=== PATIENT | male | born 1980 | race Caucasian/White ===

== ENCOUNTER 2021-04-18 11:47 | Emergency (ER) | payer OTHER, SELFPAY ==
--- NOTE | ~2021-04-18 | XR_ITS ---
EXAMINATION: XR CHEST CLINICAL INFORMATION: Malaise. Not feeling well. COMPARISON: None TECHNIQUE: Frontal view of the chest was obtained. FINDINGS: No significant abnormality is noted involving the heart, lungs, mediastinum, bony thorax or soft tissues. XR/XR chest 1V IMPRESSION: Unremarkable examination.
--- NOTE | 2021-04-18 11:53 | ED.NAVMDI ---
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) Associated symptoms: myalgias, loss of appetite and malaise Related Data Allergies Allergy/AdvReac Type Severity Reaction Status Date / Time Penicillins [PCN] Allergy Intermediate ANAPHYLAXIS Unverified 05/09/20 15:56 amoxicillin [AMOXICILLIN] Allergy Unknown ANAPHYLAXIS Unverified 05/09/20 15:56 ibuprofen [IBUPROFEN] Allergy Unknown GI UPSET Unverified 05/09/20 15:56 Review of Systems Review of Systems: Constitutional : No Weight loss, No Fever, No Chills, pos Fatigue, pos Malaise ENT/Mouth : No sore throat, No Rhinorrhea Eyes: No Eye Pain, No Swelling, No Redness Cardiovascular : No Chest Pain, No SOB, No Dyspnea on Exertion, No Orthopnea, No Edema, No Palpitations Respiratory : No Cough, No Sputum, No Wheezing Gastrointestinal : No Nausea, No Vomiting, No Diarrhea, No Constipation, No abdominal Pain, No Hematochezia, No Melena Genitourinary : No Dysuria, No Urinary Frequency, No Hematuria, Musculoskeletal : No joint pain, pos Myalgias, No Joint Swelling Skin : No Skin Lesions, No rash Neuro : No Weakness, No Numbness, No Dizziness, No Headache Psych : No Anxiety/Panic, No Depression Heme/Lymph: No Bruising, No Bleeding,No Lymphadenopathy Endocrine : No Polyuria, No Polydipsia All other systems reviewed and are negative PMFSH Past Medical History Attestation statement: The following information was validated with the patient. Medical History Depression Social History Social History (Updated 04/18/21 @ 12:39 by Negar Segal DO) Patient Tobacco Use Status: Current everyday Tobacco user Substance Use Type: Crack/Cocaine and Marijuana Advance Directives: No Advance Directives Information Provided: No Physical Exam Vital Signs: Vital Signs: Last Vital Signs Temp 98.6 F 04/18/21 11:58 Pulse 71 04/18/21 11:58 Resp 18 04/18/21 11:58 BP 109/58 L 04/18/21 11:58 Pulse Ox 98 04/18/21 11:58 Body Mass Index 22.1 Appearance: Alert. Oriented X3. No acute distress. Eyes: Pupils equal, round and reactive to light. ENT: Pharynx mild dry MM Neck: Normal inspection. Neck supple. CVS: Normal heart rate and rhythm. Pulses normal. Respiratory: No respiratory distress. Breath sounds normal. Abdomen: Soft and non-tender. Skin: Skin warm and dry. Normal skin color. Normal skin turgor. Extremities: No lower extremity edema. No calf ttp Neuro: Oriented X 3. No motor deficit. No sensory deficit. 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, at this time will need labs, IVF, COVID status Lab Data Result diagrams: 04/18/21 12:39 04/18/21 12:39 Labs: Lab Results 04/18/21 04/18/21 04/18/21 Range/Units 12:39 12:39 12:39 WBC 9.6 (4.8-10.8) X10*3/uL RBC 4.43 L (4.60-5.80) X10*6/uL Hgb 13.1 L (14.0-18.0) g/dl Hct 38.7 L (42-52) % MCV 87.4 (80-98) fL MCH 29.6 (27.0-33.0) pg MCHC 33.9 (31.0-36.0) g/dl RDW 12.9 (11.0-16.0) % Plt Count 168 (160-400) X10*3/uL MPV 11.3 (9.4-12.4) fL Immature Gran % (Auto) 0.3 (0.0-0.4) % Neut % (Auto) 71.8 (45-73) % Lymph % (Auto) 17.8 L (20-40) % [place] % (Auto) 8.6 (2-11) % Eos % (Auto) 1.0 (0-4) % Baso % (Auto) 0.5 (0-2) % Lymph # (Auto) 1.7 (1.2-4.9) X10*3/uL [place] # (Auto) 0.8 (0.1-1.2) X10*3/uL Eos # (Auto) 0.1 (0.0-0.4) X10*3/uL Baso # (Auto) 0.1 (0.0-0.2) X10*3/uL Abs Immat Gran (auto) 0.03 (0.00-0.03) X10*3/uL Absolute Neuts (auto) 6.9 (2.0-8.3) X10*3/uL Absolute Nucleated RBC 0.000 (0.0-0.012) X10*3/uL Nucleated RBC % (auto) 0.0 (0.0-0.2) /100WBC Sodium 136 (135-145) mmol/L Potassium 3.6 (3.3-5.1) mmol/L Chloride 102 (96-108) mmol/L Carbon Dioxide 27 (22-29) mmol/L Anion Gap 11 L (12-20) BUN 12 (9-16) mg/dL Creatinine 0.87 (0.5-1.4) mg/dL Estim Creat Clear Calc 108.6 Estimated GFR > 60 Random Glucose 100 (60-115) mg/dL Calcium 8.6 (8.4-10.2) mg/dL Magnesium 2.0 (1.6-2.6) mg/dL Total Bilirubin 1.2 H (0.0-1.0) mg/dL Direct Bilirubin 0.5 (0.0-0.5) mg/dL AST 16 (5-37) U/L ALT 13 (0-40) U/L Alkaline Phosphatase 39 (39-117) U/L Total Creatine Kinase 178 H (38-174) U/L Total Protein 6.3 L (6.5-8.0) g/dL Albumin 4.0 (3.5-5.0) g/dL COVID-19 (ELAINE) (Negative) COVID-19 Clin Com 04/18/21 Range/Units 12:39 WBC (4.8-10.8) X10*3/uL RBC (4.60-5.80) X10*6/uL Hgb (14.0-18.0) g/dl Hct (42-52) % MCV (80-98) fL MCH (27.0-33.0) pg MCHC (31.0-36.0) g/dl RDW (11.0-16.0) % Plt Count (160-400) X10*3/uL MPV (9.4-12.4) fL Immature Gran % (Auto) (0.0-0.4) % Neut % (Auto) (45-73) % Lymph % (Auto) (20-40) % [place] % (Auto) (2-11) % Eos % (Auto) (0-4) % Baso % (Auto) (0-2) % Lymph # (Auto) (1.2-4.9) X10*3/uL [place] # (Auto) (0.1-1.2) X10*3/uL Eos # (Auto) (0.0-0.4) X10*3/uL Baso # (Auto) (0.0-0.2) X10*3/uL Abs Immat Gran (auto) (0.00-0.03) X10*3/uL Absolute Neuts (auto) (2.0-8.3) X10*3/uL Absolute Nucleated RBC (0.0-0.012) X10*3/uL Nucleated RBC % (auto) (0.0-0.2) /100WBC Sodium (135-145) mmol/L Potassium (3.3-5.1) mmol/L Chloride (96-108) mmol/L Carbon Dioxide (22-29) mmol/L Anion Gap (12-20) BUN (9-16) mg/dL Creatinine (0.5-1.4) mg/dL Estim Creat Clear Calc Estimated GFR Random Glucose (60-115) mg/dL Calcium (8.4-10.2) mg/dL Magnesium (1.6-2.6) mg/dL Total Bilirubin (0.0-1.0) mg/dL Direct Bilirubin (0.0-0.5) mg/dL AST (5-37) U/L ALT (0-40) U/L Alkaline Phosphatase (39-117) U/L Total Creatine Kinase (38-174) U/L Total Protein (6.5-8.0) g/dL Albumin (3.5-5.0) g/dL COVID-19 (ELAINE) Negative (Negative) COVID-19 Clin Com See Note Discharge Plan Discharge Clinical Impression: Myalgia Patient Disposition: Home, Self-Care Instructions: Musculoskeletal Pain (ED) Additional Instructions: return to ED for any worsening symptoms or concerns COVID swab is negative contact your primary care doctor if you do not feel better Stand Alone Forms: Work/School Release
[2021-04-18 11:58] VITALS: BP 109/58; BP 120/70; PULSE 71; PULSE 75; RESP 18; TEMP 37; O2SAT 100; O2SAT 98; BMI 22.1
[2021-04-18 12:47] LABS: MANUAL DIFF FLAG NO
[2021-04-18 12:48] LABS: Basophils Absolute Auto 0.1 X10*3/uL (0.0-0.2); Basophils Percent Auto 0.5 % (0-2); Eosinophils Absolute Auto 0.1 X10*3/uL (0.0-0.4); Hematocrit 38.7 % (42-52); Hemoglobin 13.1 g/dl (14.0-18.0); Imm Gran Abs Auto 0.03 X10*3/uL (0.00-0.03); Imm Gran Pct Auto 0.3 % (0.0-0.4); Lymphocytes Absolute Auto 1.7 X10*3/uL (1.2-4.9); Lymphocytes Percent Auto 17.8 % (20-40); Mean Corpuscular HGB Conc 33.9 g/dl (31.0-36.0); Mean Corpuscular Hemoglobin 29.6 pg (27.0-33.0); Mean Corpuscular Volume 87.4 fL (80-98); Mean Platelet Volume 11.3 fL (9.4-12.4); Monocytes Absolute Auto 0.8 X10*3/uL (0.1-1.2); Monocytes Percent Auto 8.6 % (2-11); Neutrophils Absolute Auto 6.9 X10*3/uL (2.0-8.3); Neutrophils Percent Auto 71.8 % (45-73); Platelet Count 168 X10*3/uL (160-400); Red Blood Count 4.43 X10*6/uL (4.60-5.80); Red Cell Distribution Width 12.9 % (11.0-16.0); White Blood Count 9.6 X10*3/uL (4.8-10.8)
[2021-04-18 13:10] LABS: COVID-19 Test Negative (Negative)
[2021-04-18 13:11] LABS: Anion Gap 11 (12-20); Blood Urea Nitrogen 12 mg/dL (9-16); Calcium 8.6 mg/dL (8.4-10.2); Carbon Dioxide 27 mmol/L (22-29); Chloride 102 mmol/L (96-108); Creatinine Clr Calc Pharmacy 108.6; Estimated Glomerular Filt Rate > 60; Glucose Random 100 mg/dL (60-115); Potassium 3.6 mmol/L (3.3-5.1); Sodium 136 mmol/L (135-145)
[2021-04-18 13:12] LABS: Alanine Aminotransferase 13 U/L (0-40); Alkaline Phosphatase 39 U/L (39-117); Aspartate Amino Transferase 16 U/L (5-37); Bilirubin Direct 0.5 mg/dL (0.0-0.5); Bilirubin Total 1.2 mg/dL (0.0-1.0); Total Protein 6.3 g/dL (6.5-8.0)
== END 2021-04-18 13:49 | disposition home or self-care (01) ==
PROVIDERS: Emergency Provider Emergency Medicine
DX: M79.10 Myalgia, unspecified site (principal); Z20.822 Contact with and (suspected) exposure to COVID-19; F17.210 Nicotine dependence, cigarettes, uncomplicated
CPT/HCPCS: 36415; 71045; 80048; 80076; 82550; 83735; 85025; 87635; 96361; 96374; 99283; 99284

== ENCOUNTER 2021-05-06 15:33 | Emergency (ER) | payer OTHER, SELFPAY ==
--- NOTE | 2021-05-06 15:48 | ED_ITS ---
HPI - Psych General Chief Complaint: Anxiety Stated Complaint: anxiety Time Seen by Provider: 05/06/21 15:48 Source: patient Mode of arrival: ambulatory Limitations: no limitations History of Present Illness HPI Narrative: 40-year-old male presents with anxiety and depression because he recently lost his housing. Reported to nurse that he violated his sex offender probation recently, and started using crack. Patient tells me he feels nauseous, has fatigue and body aches. 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 States he has been living at the [facility] in, but had to leave due to molds. States he is anxious, and wants a place to stay. He is not suicidal is not homicidal, no hallucinations. MD complaint: anxiety and substance abuse Onset (ago): day(s) (3) Duration: constant History of same: Yes Relieving factors: none Context: recent drug abuse Associated psychiatric symptoms: depression Associated symptoms: denies other symptoms Treatments prior to arrival: none Related Data Allergies Allergy/AdvReac Type Severity Reaction Status Date / Time Penicillins [PCN] Allergy Intermediate ANAPHYLAXIS Verified 05/06/21 15:56 amoxicillin [AMOXICILLIN] Allergy Unknown ANAPHYLAXIS Unverified 05/09/20 15:56 ibuprofen [IBUPROFEN] Allergy Unknown GI UPSET Unverified 05/09/20 15:56 Review of Systems Constitutional: Constitutional: Reports body ache(s), Denies chills, Reports f atigue, Denies fever(s), Denies headache(s), Reports malaise and Denies weakness Eyes: Eyes: Denies diplopia ENT: Denies vertigo, Denies dizziness, Denies otalgia, Denies headache(s), Denies mouth pain, Denies post nasal drip, Denies sinus pain, Denies sinus pressure, Denies sore throat and Denies throat swelling Cardiovascular: Cardiovascular: Denies chest pain, Denies syncope, Denies leg edema, Denies lightheadedness, Denies Loss of Consciousness, Denies palpitations and Denies dyspnea Respiratory: Respiratory: Denies chest congestion, Denies cough and Denies dyspnea Gastrointestinal: Gastrointestinal: Denies abdominal pain, Denies hematochezia , Denies constipation, Denies diarrhea, Reports nausea and Denies vomiting Musculoskeletal: Musculoskeletal: Reports myalgias Integumentary/Breasts: Skin/Breast: Reports system reviewed and no additional complaints, except as docu Neurologic: Denies confusion, Denies vertigo, Denies dizziness, Denies syncope, Denies headache(s) and Denies weakness Psychiatric: Psychiatric: Denies anxiety, Denies confusion and Denies depression Endocrine: Endocrine: Reports fatigue and Denies palpitations Allergic/Immunologic: Allergic/Immunologic: Denies throat swelling PMFSH Past Medical History Medical History Depression Social History Social History Patient Tobacco Use Status: Current everyday Tobacco user Substance Use Type: Crack/Cocaine and Marijuana Advance Directives: No Advance Directives Information Provided: Yes Physical Exam Vital Signs: Vital Signs: Last Vital Signs Temp 97.0 F 05/06/21 16:51 Pulse 74 05/06/21 16:51 Resp 16 05/06/21 16:51 BP 99/58 L 05/06/21 16:51 Pulse Ox 99 05/06/21 16:51 Body Mass Index 22.4 Const: General: no acute distress, alert and awake; No confusion Nutritional Appearance: thin Orientation/consciousness: patient oriented x3 and No confusion Limitations: no limitations HENMT: Head: Yes normal to inspection, Yes normocephalic and Yes atraumatic Ears: hearing grossly normal bilaterally, external ears normal, TM's normal bilaterally and EAC's normal General nose exam: Normal external nose present Face and sinus: Yes normal facial exam and Yes sinuses nontender Mouth: Normal oral and palatal mucosa present Throat: Yes posterior oropharynx normal Eyes: Conjunctivae: conjunctivae normal Pupils: Equal, round and reactive pupils present EOM: EOMs intact bilaterally Neck: Neck: Yes full ROM, Yes no lymphadenopathy and Yes supple Resp: Effort & Inspection: normal respiratory effort and able to speak in complete sentences Auscultation: clear to auscultation bilaterally, no crackles, no rales, no rhonchi and no wheezes Cardio: Rate: regular rate Rhythm: regular rhythm Heart sounds: S1 normal heart sound present and S2 normal heart sound present GI: Inspection: Yes normal to inspection Palpation (GI): Soft to palpation, nontender, no guarding and not rigid Percussion: Yes normal to percussion Auscultation: normal bowel sounds Skin: General skin exam: no rashes or lesions noted Neuro: General: patient oriented x3 and No confusion Cranial nerves: Yes E qual, round and reactive pupils present Extrem: General: Yes normal to inspection and Yes full ROM Psych: Appearance: grossly normal Affect: normal affect Attitude: cooperative Thought process: Normal thought process present Course Course Course Narrative: 40-year-old male who has recently lost housing presents for anxiety over losing housing, feeling depressed, nausea fatigue and body aches, using crack cocaine, and violating his sex offender probation On exam, patient is disheveled and chronically ill-appearing. Lungs clear to auscultation bilaterally. No acute physical exam findings. Vital signs are stable. Will get basic labs, test for COVID, consult care team Labs are unremarkable, patient is COVID negative. Care team tried to engage patient, stated patient would not participate, would not answer questions. SIgned pt out to [facility], pending anothr care team attempt to engage patient MDM - Psych Lab Data Result diagrams: 05/06/21 17:00 05/06/21 17:00 Labs: Lab Results 05/06/21 05/06/21 05/06/21 Range/Units 17:00 17:00 17:00 WBC 10.2 (4.8-10.8) X10*3/uL RBC 4.58 L (4.60-5.80) X10*6/uL Hgb 13.5 L (14.0-18.0) g/dl Hct 40.7 L (42-52) % MCV 88.9 (80-98) fL MCH 29.5 (27.0-33.0) pg MCHC 33.2 (31.0-36.0) g/dl RDW 13.1 (11.0-16.0) % Plt Count 218 D (160-400) X10*3/uL MPV 10.7 (9.4-12.4) fL Immature Gran % (Auto) 0.4 (0.0-0.4) % Neut % (Auto) 62.6 (45-73) % Lymph % (Auto) 26.9 (20-40) % [place] % (Auto) 6.9 (2-11) % Eos % (Auto) 2.4 (0-4) % Baso % (Auto) 0.8 (0-2) % Lymph # (Auto) 2.7 (1.2-4.9) X10*3/uL [place] # (Auto) 0.7 (0.1-1.2) X10*3/uL Eos # (Auto) 0.2 (0.0-0.4) X10*3/uL Baso # (Auto) 0.1 (0.0-0.2) X10*3/uL Abs Immat Gran (auto) 0.04 H (0.00-0.03) X10*3/uL Absolute Neuts (auto) 6.4 (2.0-8.3) X10*3/uL Absolute Nucleated RBC 0.000 (0.0-0.012) X10*3/uL Nucleated RBC % (auto) 0.0 (0.0-0.2) /100WBC Sodium 141 (135-145) mmol/L Potassium 4.1 (3.3-5.1) mmol/L Chloride 109 H (96-108) mmol/L Carbon Dioxide 27 (22-29) mmol/L Anion Gap 9 L (12-20) BUN 17 H (9-16) mg/dL Creatinine 0.76 (0.5-1.4) mg/dL Estim Creat Clear Calc 125.9 Estimated GFR > 60 Random Glucose 109 (60-115) mg/dL Calcium 9.1 (8.4-10.2) mg/dL Total Bilirubin 0.4 (0.0-1.0) mg/dL AST 14 (5-37) U/L ALT 19 (0-40) U/L Alkaline Phosphatase 47 D (39-117) U/L Total Protein 6.6 (6.5-8.0) g/dL Albumin 4.0 (3.5-5.0) g/dL COVID-19 (ELAINE) Negative (Negative) COVID-19 Clin Com See Note Discharge Plan Discharge Clinical Impression: Acute anxiety Patient Disposition: Home, Self-Care Instructions: Anxiety (ED) Additional Instructions: Which to return to the emergency room for any thoughts of self-harm, suicide, homicidal thoughts, or any other new or concerning symptoms
[2021-05-06 15:53] VITALS: BP 108/55; PULSE 71; RESP 8; TEMP 37; O2SAT 97; BMI 22.4
[2021-05-06] MEDS: LORazepam 1 MG TABLET PO (16:34)
[2021-05-06 16:51] VITALS: BP 99/58; PULSE 74; RESP 16; TEMP 36.1; O2SAT 99
[2021-05-06 17:07] LABS: MANUAL DIFF FLAG NO
[2021-05-06 17:09] LABS: Basophils Absolute Auto 0.1 X10*3/uL (0.0-0.2); Basophils Percent Auto 0.8 % (0-2); Eosinophils Absolute Auto 0.2 X10*3/uL (0.0-0.4); Eosinophils Percent Auto 2.4 % (0-4); Hematocrit 40.7 % (42-52); Hemoglobin 13.5 g/dl (14.0-18.0); Imm Gran Abs Auto 0.04 X10*3/uL (0.00-0.03); Imm Gran Pct Auto 0.4 % (0.0-0.4); Lymphocytes Absolute Auto 2.7 X10*3/uL (1.2-4.9); Lymphocytes Percent Auto 26.9 % (20-40); Mean Corpuscular HGB Conc 33.2 g/dl (31.0-36.0); Mean Corpuscular Hemoglobin 29.5 pg (27.0-33.0); Mean Corpuscular Volume 88.9 fL (80-98); Mean Platelet Volume 10.7 fL (9.4-12.4); Monocytes Absolute Auto 0.7 X10*3/uL (0.1-1.2); Monocytes Percent Auto 6.9 % (2-11); Neutrophils Absolute Auto 6.4 X10*3/uL (2.0-8.3); Neutrophils Percent Auto 62.6 % (45-73); Platelet Count 218 X10*3/uL (160-400); Red Blood Count 4.58 X10*6/uL (4.60-5.80); Red Cell Distribution Width 13.1 % (11.0-16.0); White Blood Count 10.2 X10*3/uL (4.8-10.8)
[2021-05-06 17:27] LABS: COVID-19 Test Negative (Negative)
[2021-05-06 17:31] LABS: IDNOW Serial# 9DD0AD1C
[2021-05-06 17:34] LABS: Alanine Aminotransferase 19 U/L (0-40); Alkaline Phosphatase 47 U/L (39-117); Anion Gap 9 (12-20); Aspartate Amino Transferase 14 U/L (5-37); Bilirubin Total 0.4 mg/dL (0.0-1.0); Blood Urea Nitrogen 17 mg/dL (9-16); Calcium 9.1 mg/dL (8.4-10.2); Carbon Dioxide 27 mmol/L (22-29); Chloride 109 mmol/L (96-108); Creatinine Clr Calc Pharmacy 125.9; Estimated Glomerular Filt Rate > 60; Glucose Random 109 mg/dL (60-115); Potassium 4.1 mmol/L (3.3-5.1); Sodium 141 mmol/L (135-145); Total Protein 6.6 g/dL (6.5-8.0)
--- NOTE | 2021-05-06 17:43 | MHC.RECOVSUP ---
? Reason for consult Support o Current location: [place] o Identified substance use concern: crack <del>-</del> <del>Withdrawal</del> <del>-</del> <del>Seeking</del> <del>ATS</del> <del>(detox)</del> - Support ? Intervention: <del>o</del> <del>ATS</del> <del>bed</del> <del>search</del> <del>started/completed/in</del> <del>process</del> <del>o</del> <del>MAT</del> <del>started</del> <del>or</del> <del>to</del> <del>be</del> <del>started</del> o Community resources provided o Harm reduction discussion ? Plan: <del>o</del> <del>Referral</del> <del>to</del> <del>[facility]</del> <del>o</del> <del>Bed</del> <del>search</del> <del>in</del> <del>progress</del> <del>to</del> <del>o</del> <del>Follow</del> <del>up</del> <del>tomorrow</del> <del>o</del> <del>Patient</del> <del>awaiting</del> <del>crisis</del> <del>evaluation</del> o Patient to follow up with [facility] after discharge ? Additional information: Met with Patient and could not get any information. Patient would say one word then fall a sleep.
[2021-05-06 18:00] VITALS: BP 102/54; PULSE 72; RESP 16; TEMP 36.3; O2SAT 97
== END 2021-05-06 20:20 | disposition home or self-care (01) ==
PROVIDERS: Physician Assistant; Emergency Provider Emergency Medicine Emergency Medical Services
DX: F41.1 Generalized anxiety disorder (principal); F43.0 Acute stress reaction; M79.10 Myalgia, unspecified site; Z20.822 Contact with and (suspected) exposure to COVID-19; F14.90 Cocaine use, unspecified, uncomplicated; F12.90 Cannabis use, unspecified, uncomplicated
CPT/HCPCS: 36415; 80053; 85025; 87635; 99284

== ENCOUNTER 2023-11-22 20:52 | Emergency (ER) | payer OTHER, MEDICAID, SELFPAY ==
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
[2023-11-22 21:07] VITALS: BP 107/73; BP 136/92; PULSE 107; PULSE 84; RESP 18; TEMP 37; O2SAT 97; BMI 22.6
--- NOTE | 2023-11-22 21:24 | ED.PSYCH ---
HPI - Psych General Chief Complaint: Psychiatric Symptoms Stated Complaint: SI Time Seen by Provider: 11/22/23 21:05 Source: patient Mode of arrival: ambulatory Limitations: no limitations History of Present Illness HPI Narrative: Patient comes to the emergency room by ambulance from ED. seems that earlier today, patient walked into a police station with a knife. Seems that patient just had on him, did not threaten to hurt himself or anyone. Patient was hyperverbal intoxicated therefore they brought him to the emergency room. Patient requesting to have a good night sleep here. Also, patient complaining of chronic left elbow pain Related Data Home Medications Medication Instructions Recorded Confirmed [employer] wort 300 mg capsule 600 mg PO DAILY 11/23/23 11/23/23 Allergies Allergy/AdvReac Type Severity Reaction Status Date / Time Penicillins [PCN] Allergy Intermediate ANAPHYLAXIS Verified 11/23/23 07:51 amoxicillin [AMOXICILLIN] Allergy Unknown ANAPHYLAXIS Verified 11/23/23 07:51 Review of Systems Review of Systems: Constitutional : No Weight loss, No Fever, No Chills, No Night Sweats, No Fatigue, No Malaise ENT/Mouth : No Hearing loss, No Ear Pain, No Nasal Congestion, No Sinus Pain, No Hoarseness, No sore throat, No Rhinorrhea, No Swallowing Difficulty Eyes: No Eye Pain, No Swelling, No Redness, No Foreign Body, No Discharge, No Vision Changes Cardiovascular : No Chest Pain, No SOB, No Dyspnea on Exertion, No Orthopnea, No Edema, No Palpitations Respiratory : No Cough, No Sputum, No Wheezing, No Smoke Exposure, No Dyspnea Gastrointestinal : No Nausea, No Vomiting, No Diarrhea, No Constipation, No abdominal Pain, No Hematochezia, No Melena Genitourinary : no irregular bleeding, No Dysuria, No Urinary Frequency, No Hematuria, No Urinary Incontinence, No Urgency, No Flank Pain, No Urinary Flow Changes, No Hesitancy Musculoskeletal : Complaining of left elbow pain No Myalgias, No Joint Swelling Skin : No Skin Lesions, No rash Neuro : No Weakness, No Numbness, No Paresthesias, No Loss of Consciousness, No Dizziness, No Headache Psych : No Anxiety/Panic, No Depression, No SI/HI/AH/VH, complaining of feeling stressed Heme/Lymph: No Bruising, No Bleeding,No Lymphadenopathy Endocrine : No Polyuria, No Polydipsia, No Temperature Intolerance [facility] Past Medical History Medical History (Updated 11/23/23 @ 12:34 by Giacomo Sharma MD) Alcohol abuse Depression Social History Social History Patient Tobacco Use Status: Current everyday Tobacco user Smoked in Last 30 Days: Yes Use of substances other than those prescribed or required for medical reasons: Yes Substance Use Type: Crack/Cocaine and Marijuana Substance Use Frequency: Occasionally Advance Directives: No Advance Directives Information Provided: No Physical Exam Vital Signs: Vital Signs: Last Vital Signs Temp 97.7 F 11/23/23 08:15 Pulse 100 11/23/23 08:15 Resp 16 11/23/23 08:15 BP 125/104 H 11/23/23 08:15 Pulse Ox 96 11/23/23 08:15 O2 Del Method Room Air 11/23/23 08:15 BMI result Body Mass Index 22.6 Const: Other: Appearance: Alert. Oriented X3. No acute distress. Intoxicated Eyes: Pupils equal, round and reactive to light. ENT: Pharynx normal. Neck: Normal inspection. Neck supple. No lymph nodes noted. No crepitus CVS: Normal heart rate and rhythm. Pulses normal. Normal S1 and S2 Respiratory: No respiratory distress. Breath sounds normal. No Wheezing. No rales Abdomen: Soft and nontender. No rigidity. No distention. Skin: Skin warm and dry. Normal skin color. Normal skin turgor. Extremities: No lower extremity edema. No Lacerations. No Rash Neuro: Oriented X 3. No motor deficit. No sensory deficit. Moving all extremities. No slurred speech. CN 2 through 12 grossly intact Psych: Calm, hyperverbal, speaking in tangents, intoxicated Course Course Course Narrative: -all of patient's labs and imaging pending -care team consult pending once the patient is more sober -patient is not SI or HI Reevaluation(s) Reevaluation #1: The patient was seen by the care team today. The care team feels that he is at his baseline behavior. The patient is asking to leave. He denies any intent to harm himself or anyone else. The care team feels that he is safe for discharge. Apparently the patient has a very involved therapist. The care team is recommending that the patient be discharged and follow up with his very involved therapist. The patient was therefore discharged. Time: 12:36 Medications Administered Discontinued Medications Generic Name Dose Route Start Last Admin Trade Name Milly PRN Reason Stop Dose Admin Acetaminophen 975 mg 11/22/23 22:02 11/22/23 22:10 Acetaminophen 325 Mg Tablet PO 11/22/23 22:03 975 mg ONCE ONE Administration Acetaminophen 975 mg 11/23/23 07:59 11/23/23 08:06 Acetaminophen 325 Mg Tablet PO 11/23/23 08:00 975 mg ONCE ONE Administration Ibuprofen 600 mg 11/23/23 07:59 11/23/23 08:06 Ibuprofen 600 Mg Tablet PO 11/23/23 08:00 600 mg ONCE ONE Administration Olanzapine 10 mg 11/23/23 09:26 11/23/23 09:46 Olanzapine Odt 10 Mg Tab.Rapdis TRANSLINGU 11/23/23 09:27 10 mg ONCE ONE Administration Medical Decision Making Medical Decision Making MDM Narrative: Patient complaining of left elbow pain, keeping crying. However, within a few minutes as he started speaking to us, he forgot all about the elbow pain, moving his arms with normal range of motion. Patient only stops moving and complaints about the left elbow pain when the elbow is directly addressed Differential Diagnosis Differential Diagnoses: The differential diagnosis associated with the presentation includes (Alcohol intoxication, manic, polysubstance abuse) Admission/Observation Consideration of admission/observation: Escalation of care including admission/observation considered (Waiting for the care team for evaluation and to becomes sober) Lab Data 11/22/23 21:48 11/22/23 21:49 Labs: Lab Results 11/22/23 11/22/23 11/22/23 Range/Units 21:47 21:48 21:49 WBC 9.1 (4.8-10.8) X10*3/uL RBC 4.75 (4.60-5.80) X10*6/uL Hgb 14.5 (14.0-18.0) g/dl Hct 42.8 (42.0-52.0) % MCV 90.1 (80.0-98.0) fL MCH 30.5 (27.0-33.0) pg MCHC 33.9 (31.0-36.0) g/dl RDW 12.7 (11.0-16.0) % Plt Count 180 (160-400) X10*3/uL MPV 11.1 (9.4-12.4) fL Immature Gran % (Auto) 0.3 (0.0-0.4) % Neut % (Auto) 61.3 (45-73) % Lymph % (Auto) 28.6 (20-40) % [place] % (Auto) 6.5 (2-11) % Eos % (Auto) 2.4 (0-4) % Baso % (Auto) 0.9 (0-2) % Lymph # (Auto) 2.6 (1.2-4.9) X10*3/uL [place] # (Auto) 0.6 (0.1-1.2) X10*3/uL Eos # (Auto) 0.2 (0.0-0.4) X10*3/uL Baso # (Auto) 0.1 (0.0-0.2) X10*3/uL Abs Immat Gran (auto) 0.03 (0.00-0.03) X10*3/uL Absolute Neuts (auto) 5.6 (2.0-8.3) x10*3/uL Absolute Nucleated RBC 0.000 (0.0-0.012) X10*3/uL Nucleated RBC % (auto) 0.0 (0.0-0.2) /100WBC Sodium 141 (135-145) mmol/L Potassium 3.6 (3.3-5.1) mmol/L Chloride 107 (96-108) mmol/L Carbon Dioxide 27 (22-29) mmol/L Anion Gap 11 L (12-20) BUN 6 L (9-16) mg/dL Creatinine 0.82 (0.5-1.4) mg/dL Estim Creat Clear Calc 107.3 Estimated GFR > 60 Random Glucose 98 (60-115) mg/dL Calcium 9.1 (8.4-10.2) mg/dL Total Bilirubin 0.5 (0.0-1.0) mg/dL AST 15 (5-37) U/L ALT 10 (0-40) U/L Alkaline Phosphatase 35 L (39-117) U/L Total Protein 7.2 (6.5-8.0) g/dL Albumin 4.6 (3.5-5.0) g/dL Urine Color Yellow Urine Appearance Clear Urine pH 5.5 (5.0-9.0) Ur Specific [place] 1.025 (1.005-1.025) Urine Protein Negative (Neg-Trace) mg/dL Urine Glucose (UA) Negative (Negative) mg/dL Urine Ketones Trace (Negative) mg/dL Urine Blood Negative (Negative) Urine Nitrite Negative (Negative) Ur Leukocyte Esterase Negative (Negative) Urine RBC 0-2 (0-2) /HPF Urine WBC 0-5 (0-5) /HPF Ur Squamous Epith Cells 0-2 (0-2) /HPF Urine Bacteria 2+ (None Seen) Hyaline Casts 0-2 (0-2) /LPF Urine Opiates Screen Not Detected (Not Detect) Urine Fentanyl Screen Not Detected (Not Detect) Ur Barbiturates Screen Not Detected (Not Detect) Ur Phencyclidine Scrn Not Detected (Not Detect) Ur Amphetamines Screen Not Detected (Not Detect) U Benzodiazepines Scrn Not Detected (Not Detect) Urine Cocaine Screen POSITIVE H (Not Detect) U Marijuana (THC) Screen POSITIVE H (Not Detect) Ethyl Alcohol < 10 mg/dL Discharge Plan Discharge Clinical Impression: Anxiety Patient Disposition: Home, Self-Care Additional Instructions: Please plan on following up with your regular therapist. If at any point you wish to speak to someone confidentially about how you are feeling you can contact the [employer] [facility] [employer] ([employer]) hotline 24 hours a day at [phone]. Return to the emergency room if you feel significantly worse. Prescriptions: No Action [employer] wort 300 mg Capsule 600 mg PO DAILY Interventions: [place]-Suicide Risk Severity Scale Last Done: 11/23/23 03:34
[2023-11-22 21:57] LABS: MANUAL DIFF FLAG NO
[2023-11-22 21:58] LABS: Basophils Absolute Auto 0.1 X10*3/uL (0.0-0.2); Basophils Percent Auto 0.9 % (0-2); Eosinophils Absolute Auto 0.2 X10*3/uL (0.0-0.4); Eosinophils Percent Auto 2.4 % (0-4); Hematocrit 42.8 % (42.0-52.0); Hemoglobin 14.5 g/dl (14.0-18.0); Imm Gran Abs Auto 0.03 X10*3/uL (0.00-0.03); Imm Gran Pct Auto 0.3 % (0.0-0.4); Lymphocytes Absolute Auto 2.6 X10*3/uL (1.2-4.9); Lymphocytes Percent Auto 28.6 % (20-40); Mean Corpuscular HGB Conc 33.9 g/dl (31.0-36.0); Mean Corpuscular Hemoglobin 30.5 pg (27.0-33.0); Mean Corpuscular Volume 90.1 fL (80.0-98.0); Mean Platelet Volume 11.1 fL (9.4-12.4); Monocytes Absolute Auto 0.6 X10*3/uL (0.1-1.2); Monocytes Percent Auto 6.5 % (2-11); Neutrophils Absolute Auto 5.6 x10*3/uL (2.0-8.3); Neutrophils Percent Auto 61.3 % (45-73); Platelet Count 180 X10*3/uL (160-400); Red Blood Count 4.75 X10*6/uL (4.60-5.80); Red Cell Distribution Width 12.7 % (11.0-16.0); White Blood Count 9.1 X10*3/uL (4.8-10.8)
[2023-11-22 22:00] LABS: Appearance Urine Clear; Color Urine Yellow; Glucose Urine UA Negative (Negative); Leukocyte Esterase Urine Negative (Negative); Nitrite Urine Negative (Negative); PH 5.5 (5.0-9.0); Specific Gravity - Urine 1.025 (1.005-1.025); Urine Blood Negative (Negative); Urine Ketones Trace mg/dL (Negative); Urine Protein Negative (Neg-Trace)
[2023-11-22 22:02] LABS: Bacteria Urine 2+ (None Seen); Hyaline Casts Urine 0-2 /LPF (0-2); RBC Urine 0-2 /HPF (0-2); Squamous Epithelial Cell Urine 0-2 /HPF (0-2); WBC Urine 0-5 /HPF (0-5)
[2023-11-22 22:05] LABS: Amphetamine Screen Urine Not Detected (Not Detect); Barbiturates, Urine Not Detected (Not Detect); Benzodiazepines Screen Urine Not Detected (Not Detect); Cannabinoid Screen Urine POSITIVE (Not Detect); Cocaine Screen Urine POSITIVE (Not Detect); Fentanyl, urine Not Detected (Not Detect); Opiate Screen Urine Not Detected (Not Detect); Phencyclidine Screen Urine Not Detected (Not Detect)
--- NOTE | 2023-11-22 22:08 | MHC.CM.ED ---
CM received a message on the telephone from Gabino GALLEGOS with concerns about a patient who should be coming to our ED. Pt name is Alli Tang 1980. He made SI statements to the social wo [email or web address]. 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 States he is delusional. Pt has FAS and mild cognitive delay. Has been homeless for about 48 hours, did not explain why. hall worker stated the police were on the scene and bringing him to the ED. He was adamant about the patient being unsafe and needing to be [facility] [address] to hospital. Pt office number is [phone]. hall worker did leave another contact number, but it was inaudible. Report of this phone message was given to Mansi COOL and Pamela RN in the pod. Pt is in the pod 5.
[2023-11-22] MEDS: Acetaminophen 325 MG TABLET 975 MG PO (22:10)
[2023-11-22 22:12] LABS: Alanine Aminotransferase 10 U/L (0-40); Albumin Level 4.6 g/dL (3.5-5.0); Alkaline Phosphatase 35 U/L (39-117); Anion Gap 11 (12-20); Aspartate Amino Transferase 15 U/L (5-37); Bilirubin Total 0.5 mg/dL (0.0-1.0); Blood Urea Nitrogen 6 mg/dL (9-16); Calcium 9.1 mg/dL (8.4-10.2); Carbon Dioxide 27 mmol/L (22-29); Chloride 107 mmol/L (96-108); Creatinine Clr Calc Pharmacy 107.3; Estimated Glomerular Filt Rate > 60; Ethanol < 10 mg/dL; Glucose Random 98 mg/dL (60-115); Potassium 3.6 mmol/L (3.3-5.1); Sodium 141 mmol/L (135-145); Total Protein 7.2 g/dL (6.5-8.0)
[2023-11-23 06:47] VITALS: RESP 16
--- NOTE | 2023-11-23 07:25 | PC.NURSE ---
Assumed care of patient at 0700, patient appears to be sleeping, respirations even and unlabored, no apparent distress noted at this time. Continue plan of care for CARE team robin
--- NOTE | 2023-11-23 07:54 | PC.NURSE ---
Patient ambulated out to nurses station with steady gait then approached nurses station gripping his rib cage on the right side exclaiming I have the worst pain of my life . This RN asked if patient would be willing to take tylenol, since it was given last night. Pt then exclaimed that didn't do nothing for me, tylenol don't do shit . This RN verified with patient that he did not have an allergy to ibuprofen, he states I can take ibuprofen, I ain't allergic to that shit . this RN then asked patient if he would be interested in taking Ibuprofen, patient stated no, I need more, Ibuprofen won't do shit . This RN notified MD Gooden of patient's request. Patient gripping rib cage walking back to room. Once back in room, patient started rolling around on bed, and walking around with steady gait, not holding his ribs. Patient then reapproached the nurses station gripping his ribs requesting MD agata aware. Xray order placed
[2023-11-23] MEDS: Ibuprofen 600 MG TABLET PO (08:06)
[2023-11-23] MEDS: Acetaminophen 325 MG TABLET 975 MG PO (08:06)
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
[2023-11-23 08:15] VITALS: BP 125/104; PULSE 100; RESP 16; TEMP 36.5; O2SAT 96
--- NOTE | 2023-11-23 08:15 | PC.NURSE ---
Patient reports to this RN that he takes Iron Wort daily and would like to have the medication this am. This RN asked patient if he knows his dose. Patient reports I take 9,000 mg a day . This RN educated patient that he likely does not take that high of a dose. Patient reports that he has the bottle in his belongings. This RN found bottle of 300mg Gloria's Wort. Patient then states No, no, no I just keep my 9,000mg doses in that bottle. Pt then reported that he takes two of the pills every morning. Med rec updated to reflect 600 mg (two 300mg) Iron Wort.
--- NOTE | 2023-11-23 09:28 | PC.NURSE ---
Patient appears to be manic, very hyperverbal with pressured speech at times but is redirectable. Pt is calm and cooperative, offering no complaints to this RN. Speaking with CARE team at this time. MD Gooden notified regarding patient's manic presentation, Leonie requested to assist with helping patient calm down
[2023-11-23] MEDS: OLANZapine ODT 10 MG TAB.RAPDIS TRANSLINGU (09:46)
[2023-11-23 13:00] VITALS: BP 134/62; PULSE 78; RESP 16; TEMP 36.6; O2SAT 97
== END 2023-11-23 13:01 | disposition home or self-care (01) ==
PROVIDERS: Emergency Medicine; Emergency Provider Emergency Medicine
DX: F41.1 Generalized anxiety disorder (principal); R45.851 Suicidal ideations; F14.90 Cocaine use, unspecified, uncomplicated; F12.90 Cannabis use, unspecified, uncomplicated; M25.522 Pain in left elbow; Z79.899 Other long term (current) drug therapy
CPT/HCPCS: 36415; 71101; 80053; 80307; 81001; 85025; 99285; S9485

== ENCOUNTER 2023-12-15 22:48 | Emergency (ER) | payer MEDICAID, SELFPAY | END 2023-12-15 23:27 | disposition left against medical advice (07) | LOC: HO.ED 23:25 | PROVIDERS: Emergency Provider Emergency Medicine | DX: Z53.21 Procedure and treatment not carried out due to patient leaving prior to being seen by health care provider (principal); F41.9 Anxiety disorder, unspecified ==

== ENCOUNTER 2025-02-12 02:31 | Emergency (ER) | payer OTHER, SELFPAY ==
[2025-02-12 02:40] VITALS: BP 110/74; BP 114/68; PULSE 66; PULSE 80; RESP 16; TEMP 36.7; O2SAT 95; O2SAT 98; BMI 24.6
--- NOTE | 2025-02-12 02:59 | ED.GENADULT ---
HPI - General Adult General Chief complaint: General Medical Stated complaint: NOT FEELING WELL,HAS BEEN IN HEAT ALL DAY Time Seen by Provider: 02/12/25 02:38 Source: patient Mode of arrival: ambulatory Limitations: no limitations History of Present Illness ED Provider: HPI narrative: Patient comes here as he is not feeling well feel exhausted was in the sun and heat all day today been drinking water after coming to the ER patient is feeling much better no nausea no vomiting Related Data Home Medications ?Medication ?Instructions ?Recorded ?Confirmed Pierson's wort 300 mg capsule 600 mg PO DAILY 11/23/23 11/23/23 Allergies Allergy/AdvReac Type Severity Reaction Status Date / Time Penicillins (PCN) Allergy Intermediate ANAPHYLAXIS Verified 02/12/25 02:42 amoxicillin (AMOXICILLIN) Allergy Unknown ANAPHYLAXIS Verified 02/12/25 02:42 Review of Systems Review of Systems: Yes all other systems are reviewed and are negative [facility] Past Medical History Medical History Alcohol abuse Depression Social History Social History Patient Tobacco Use Status: Current everyday Tobacco user Smoked in Last 30 Days: No Use of substances other than those prescribed or required for medical reasons: No Substance Use Type: Crack/Cocaine and Marijuana Advance Directives: No Advance Directives Information Provided: No Do you have a plan to hurt others: No Plan Physical Exam ED Vital Signs: Vital Signs - 24 hr 02/12/25 02:40 Temperature 98.1 F Pulse Rate 66 Respiratory Rate 16 Blood Pressure 114/68 Pulse Oximetry 95 BMI result Body Mass Index 24.6 Appearance: Alert. Oriented X3. No acute distress. Eyes: PERRLA, No Nystagmus ENT: Pharynx normal. Oral Mucosa moist Neck: Normal inspection. Neck supple. CVS: Normal heart rate and rhythm. Pulses normal. Respiratory: No respiratory distress. Equal air entry bilateral, no wheezing/rales/rhonchi Abdomen: Soft and nontender. Bowel sounds are present, no mass palpable, no CVA tenderness Skin: Skin warm and dry. Normal skin color. Normal skin turgor. Extremities: No lower extremity edema. No calf tenderness Neuro: Oriented X 3. No motor deficit. No sensory deficit.No cerebellar signs , cranial nerves II-XII intact Medical Decision Making Medical Decision Making [facility] Narrative: Patient clinically with heat exhaustion after coming to the ER patient is feeling much better labs are stable taking p.o. fluids will discharge patient home advised to stay in shared area and drink plenty of fluids Lab Data [facility] Lab Attestation statement: I reviewed the patient's lab results. 02/12/25 02:52 02/12/25 02:52 Labs: Lab Results 02/12/25 Range/Units 02:52 WBC 9.7 (4.8-10.8) X10*3/uL RBC 5.11 (4.60-5.80) X10*6/uL Hgb 15.2 (14.0-18.0) g/dl Hct 43.1 (42.0-52.0) % MCV 84.3 (80.0-98.0) fL MCH 29.7 (27.0-33.0) pg MCHC 35.3 (31.0-36.0) g/dl RDW 12.6 (11.0-16.0) % Plt Count 181 (160-400) X10*3/uL MPV 10.8 (9.4-12.4) fL Immature Gran % (Auto) 0.3 (0.0-0.4) % Neut % (Auto) 63.4 (45-73) % Lymph % (Auto) 27.8 (20-40) % [place] % (Auto) 6.1 (2-11) % Eos % (Auto) 1.9 (0-4) % Baso % (Auto) 0.5 (0-2) % Lymph # (Auto) 2.7 (1.2-4.9) X10*3/uL [place] # (Auto) 0.6 (0.1-1.2) X10*3/uL Eos # (Auto) 0.2 (0.0-0.4) X10*3/uL Baso # (Auto) 0.1 (0.0-0.2) X10*3/uL Abs Immat Gran (auto) 0.03 (0.00-0.03) X10*3/uL Absolute Neuts (auto) 6.2 (2.0-8.3) x10*3/uL Absolute Nucleated RBC 0.000 (0.0-0.012) X10*3/uL Nucleated RBC % (auto) 0.0 (0.0-0.2) /100WBC Sodium 140 (135-145) mmol/L Potassium 3.9 (3.3-5.1) mmol/L Chloride 105 (96-108) mmol/L Carbon Dioxide 25 (22-29) mmol/L Anion Gap 14 (12-20) BUN 11 (9-16) mg/dL Creatinine 0.91 (0.5-1.4) mg/dL Estim Creat Clear Calc 106.9 Estimated GFR > 60 Random Glucose 97 (60-115) mg/dL Calcium 9.1 (8.4-10.2) mg/dL Total Bilirubin 0.5 (0.0-1.0) mg/dL AST 18 (5-37) U/L ALT 13 (0-40) U/L Alkaline Phosphatase 44 (39-117) U/L Total Creatine Kinase 87 (38-174) U/L Total Protein 6.8 (6.5-8.0) g/dL Albumin 4.6 (3.5-5.0) g/dL Influenza Type A (PCR) NEGATIVE (Negative) Influenza Type B (PCR) NEGATIVE (Negative) RSV RNA Qual (PCR) NEGATIVE (Negative) SARS-CoV-2 RNA (RT-PCR) NEGATIVE (Negative) Discharge Plan Discharge Clinical Impression: Heat exhaustion Patient Disposition: Home, Self-Care Instructions: Heat Exhaustion (ED) Additional Instructions: Drink plenty of fluids Stay in shaded area Avoids working in the sun Prescriptions: No Action Gloria's wort 300 mg Capsule 600 mg PO DAILY Interventions: ED Discharge Assessment Last Done: 02/12/25 07:31 Discharge Date/Time: 02/12/25 07:35 Print Language: Malay
[2025-02-12 03:04] LABS: MANUAL DIFF FLAG NO
[2025-02-12 03:05] LABS: Basophils Absolute Auto 0.1 X10*3/uL (0.0-0.2); Basophils Percent Auto 0.5 % (0-2); Eosinophils Absolute Auto 0.2 X10*3/uL (0.0-0.4); Eosinophils Percent Auto 1.9 % (0-4); Hematocrit 43.1 % (42.0-52.0); Hemoglobin 15.2 g/dl (14.0-18.0); Imm Gran Abs Auto 0.03 X10*3/uL (0.00-0.03); Imm Gran Pct Auto 0.3 % (0.0-0.4); Lymphocytes Absolute Auto 2.7 X10*3/uL (1.2-4.9); Lymphocytes Percent Auto 27.8 % (20-40); Mean Corpuscular HGB Conc 35.3 g/dl (31.0-36.0); Mean Corpuscular Hemoglobin 29.7 pg (27.0-33.0); Mean Corpuscular Volume 84.3 fL (80.0-98.0); Mean Platelet Volume 10.8 fL (9.4-12.4); Monocytes Absolute Auto 0.6 X10*3/uL (0.1-1.2); Monocytes Percent Auto 6.1 % (2-11); Neutrophils Absolute Auto 6.2 x10*3/uL (2.0-8.3); Neutrophils Percent Auto 63.4 % (45-73); Platelet Count 181 X10*3/uL (160-400); Red Blood Count 5.11 X10*6/uL (4.60-5.80); Red Cell Distribution Width 12.6 % (11.0-16.0); White Blood Count 9.7 X10*3/uL (4.8-10.8)
[2025-02-12 03:21] LABS: Anion Gap 14 (12-20)
[2025-02-12 03:22] LABS: Alanine Aminotransferase 13 U/L (0-40); Albumin Level 4.6 g/dL (3.5-5.0); Alkaline Phosphatase 44 U/L (39-117); Aspartate Amino Transferase 18 U/L (5-37); Bilirubin Total 0.5 mg/dL (0.0-1.0); Blood Urea Nitrogen 11 mg/dL (9-16); Calcium 9.1 mg/dL (8.4-10.2); Carbon Dioxide 25 mmol/L (22-29); Chloride 105 mmol/L (96-108); Creatinine Clr Calc Pharmacy 106.9; Estimated Glomerular Filt Rate > 60; Glucose Random 97 mg/dL (60-115); Potassium 3.9 mmol/L (3.3-5.1); Sodium 140 mmol/L (135-145); Total Protein 6.8 g/dL (6.5-8.0)
[2025-02-12 03:40] LABS: Influenza A PCR NEGATIVE (Negative); Influenza B PCR NEGATIVE (Negative); Resp Syncy Virus RNA Qual PCR NEGATIVE (Negative); SARS COV2 PCR INHOUSE NEGATIVE (Negative)
[2025-02-12 06:18] VITALS: BP 107/61; PULSE 60; RESP 16; TEMP 36.6; O2SAT 97
[2025-02-12 07:27] VITALS: BP 104/55; PULSE 64; RESP 20; TEMP 36.5; O2SAT 95
[2025-02-12 07:31] VITALS: BP 104/55; PULSE 64; RESP 20; TEMP 36.5; O2SAT 95
== END 2025-02-12 07:35 | disposition home or self-care (01) ==
PROVIDERS: Emergency Provider Internal Medicine; PCP Internal Medicine
DX: T67.5XXA Heat exhaustion, unspecified, initial encounter (principal); X30.XXXA Exposure to excessive natural heat, initial encounter; Y93.9 Activity, unspecified; Y92.9 Unspecified place or not applicable; Y99.8 Other external cause status; Z03.818 Encounter for observation for suspected exposure to other biological agents ruled out
CPT/HCPCS: 0241U; 36415; 80053; 82550; 85025; 99283; 99284